=== PATIENT | female | born 1980 | race African-American/Black ===

== ENCOUNTER 2016-11-29 11:13 | Emergency (ER) | payer SELFPAY ==
[~2016-11-29] VITALS: Ht 162.6 cm; Wt 59.0 kg
[~2016-11-29 11:13] MED LIST: PREN-145 OR
[2016-11-29 11:59] VITALS: BP 140/90
[2016-11-29 12:35] LABS: Urine Bilirubin Negative (Negative); Urine Color Red (Yellow); Urine Glucose Normal (Normal); Urine Hyaline Cast FEW /lpf (0 - 2); Urine Ketone TRACE (Negative); Urine Mucus FEW (None Seen); Urine Nitrite Negative (Negative); Urine RBC 5698 /hpf (0 - 4); Urine pH 5.5 (5.0-8.0)
[2016-11-29 12:36] LABS: Urine Blood 3+ /uL (Negative)
[2016-11-29] MEDS: KETOROLAC TROMETH 60MG/2ML VIAL IM ONE (12:50)
== END 2016-11-29 14:19 | disposition home or self-care (01) ==
LOC: ER 11:17
DX: M54.9 Dorsalgia, unspecified (principal); R31.0 Gross hematuria; R10.9 Unspecified abdominal pain; I10 Essential (primary) hypertension; F17.210 Nicotine dependence, cigarettes, uncomplicated
CPT/HCPCS: 74176; 81001; 81025; 96372; 99285; J1885

== ENCOUNTER 2016-12-19 11:09 | Emergency (ER) | payer SELFPAY ==
[~2016-12-19] VITALS: Ht 162.6 cm; Wt 61.2 kg
[2016-12-19] MEDS ORDERED: cloNIDine HCL 0.1 MG TAB PO ONE (12:00)
[2016-12-19] MEDS ORDERED: KETOROLAC TROMETH 60MG/2ML VIAL IM ONE (12:00)
[2016-12-19 13:18] VITALS: BP 168/97
== END 2016-12-19 16:49 | disposition home or self-care (01) ==
LOC: ER 11:09
DX: I10 Essential (primary) hypertension (principal); G89.29 Other chronic pain; R51 Headache; F17.210 Nicotine dependence, cigarettes, uncomplicated; Z91.14 Patient's other noncompliance with medication regimen
CPT/HCPCS: 96372; 99283; J1885

== ENCOUNTER 2017-03-06 10:26 | Emergency (ER) | payer SELFPAY ==
[~2017-03-06] VITALS: Ht 162.6 cm; Wt 58.5 kg
[2017-03-06 11:04] LABS: Basophils # (auto) 0.2 uL; Basophils % (auto) 2.1 % (0.0-2.0); Eosinophils # (auto) 0.2 uL; Eosinophils % (auto) 2.1 % (0.0-7.0); Hematocrit 35.2 % (36.0-46.0); Hemoglobin 10.8 g/dL (12.2-16.2); Lymphocytes # (auto) 2.1 uL; Mean Corpuscular Hemoglobin 22.3 pg (28.0-32.0); Mean Corpuscular Hgb Conc. 30.7 g/dL (32.0-36.0); Mean Corpuscular Volume 72.6 fL (80.0-100.0); Mean Platelet Volume 9.7 fL (7.4-10.4); Monocytes # (auto) 0.6 uL; Monocytes % (auto) 7.4 % (0.0-12.0); Neutrophils # (auto) 4.6 uL; Neutrophils % (auto) 60.4 % (37.0-80.0); Nucleated Red Blood Cells % 0.1 %; Platelet Count (auto) 267 10^3/uL (140-450); White Blood Cell 7.5 10^3/uL (4.4-10.8)
[2017-03-06 11:22] LABS: Albumin 3.7 g/dL (3.4-5.0); BUN/Creatinine Ratio 12.8; Bilirubin, Total 0.3 mg/dL (0.2-1.0); Calcium 8.2 mg/dL (8.5-10.1); Total Protein 7.5 g/dL (6.4-8.2)
[2017-03-06 16:59] LABS: Urine Bilirubin Negative (Negative); Urine Blood Negative /uL (Negative); Urine Color Yellow (Yellow); Urine Glucose Normal (Normal); Urine Ketone Negative (Negative); Urine Mucus FEW (None Seen); Urine Nitrite Negative (Negative); Urine RBC 1 /hpf (0 - 4); Urine Squamous Epithelial Cell FEW /hpf (<5); Urine Urobilinogen Normal (Negative)
[2017-03-06 17:26] VITALS: BP 152/98
== END 2017-03-06 17:28 | disposition home or self-care (01) ==
LOC: ER 10:26
DX: R10.84 Generalized abdominal pain (principal); I10 Essential (primary) hypertension; F17.210 Nicotine dependence, cigarettes, uncomplicated; R11.0 Nausea
CPT/HCPCS: 36415; 80053; 81001; 81025; 85025

== ENCOUNTER 2017-05-09 19:54 | Emergency (ER) | payer SELFPAY ==
[~2017-05-09] VITALS: Ht 162.6 cm; Wt 57.2 kg
[2017-05-09] MEDS ORDERED: NIFEdipine 10 MG CAP PO ONE (20:15)
[2017-05-09 20:25] LABS: Eosinophils # (auto) 0.1 uL; Eosinophils % (auto) 1.5 % (0.0-7.0); Monocytes # (auto) 0.4 uL; Nucleated Red Blood Cells % 0.1 %; White Blood Cell 6.2 10^3/uL (4.4-10.8)
[2017-05-09 20:27] LABS: Basophils # (auto) 0.2 uL; Basophils % (auto) 2.7 % (0.0-2.0); Hematocrit 37.1 % (36.0-46.0); Hemoglobin 11.7 g/dL (12.2-16.2); Lymphocytes # (auto) 1.7 uL; Lymphocytes % (auto) 27.3 % (10.0-50.0); Mean Corpuscular Hemoglobin 22.9 pg (28.0-32.0); Mean Corpuscular Hgb Conc. 31.6 g/dL (32.0-36.0); Mean Corpuscular Volume 72.4 fL (80.0-100.0); Mean Platelet Volume 9.5 fL (6.9-10.8); Neutrophils # (auto) 3.9 uL; Neutrophils % (auto) 62.5 % (37.0-80.0); Platelet Count (auto) 293 10^3/uL (140-450); Red Cell Distribution Width 15.5 % (11.8-14.3)
[2017-05-09 20:51] LABS: Albumin 3.7 g/dL (3.4-5.0); Alkaline Phosphatase 66 U/L (45-117); Anion Gap 6 (5-15); Aspartate Aminotransferase 10 U/L (15-37); BUN/Creatinine Ratio 19.7; Bilirubin, Total 0.2 mg/dL (0.2-1.0); Blood Urea Nitrogen 15 mg/dL (7-18); Calcium 8.3 mg/dL (8.5-10.1); Carbon Dioxide 25 mmol/L (21-32); Chloride 109 mmol/L (98-107); GFR African American 110 mL/min; GFR Non-African American 91 mL/min; Glucose 91 mg/dL (74-106); Sodium 140 mmol/L (136-145); Total Protein 8.1 g/dL (6.4-8.2)
[2017-05-10] MEDS ORDERED: hydrALAZINE HCL 20 MG/ML VL IV ONE (01:15)
[2017-05-10] MEDS ORDERED: ENALAPRILAT 1.25 MG/ML-1ML VIAL IV ONE (01:15)
[2017-05-10] MEDS ORDERED: ONDANSETRON HCL 4 MG/2 ML VIAL IV ONE (04:00)
[2017-05-10] MEDS ORDERED: HYDROmorphone HCL 2 MG/ML VL IV ONE (04:00)
[2017-05-10 05:19] LABS: Urine Bilirubin Negative (Negative); Urine Blood 3+ /uL (Negative); Urine Color Yellow (Yellow); Urine Glucose Normal (Normal); Urine Ketone Negative (Negative); Urine Mucus FEW (None Seen); Urine Nitrite POSITIVE (Negative); Urine RBC 1773 /hpf (0 - 4); Urine Squamous Epithelial Cell FEW /hpf (<5); Urine Urobilinogen Normal (Negative)
[2017-05-10 05:25] VITALS: BP 169/94
== END 2017-05-10 05:44 | disposition home or self-care (01) ==
LOC: ER 19:54
DX: I10 Essential (primary) hypertension (principal); F17.210 Nicotine dependence, cigarettes, uncomplicated
CPT/HCPCS: 36415; 70450; 71010; 80053; 81001; 81025; 84484; 85025; 93005; 96374; 96375; 99285; J0360; J1170; J2405

== ENCOUNTER 2017-06-20 09:27 | Emergency (ER) | payer SELFPAY ==
[~2017-06-20] VITALS: Ht 162.6 cm; Wt 55.8 kg
[2017-06-20 09:43] VITALS: BP 183/107
[2017-06-20 10:36] LABS: Urine Bilirubin Negative (Negative); Urine Blood Negative /uL (Negative); Urine Color Yellow (Yellow); Urine Glucose Normal (Normal); Urine Ketone Negative (Negative); Urine Mucus FEW (None Seen); Urine Nitrite Negative (Negative); Urine RBC 1 /hpf (0 - 4); Urine Squamous Epithelial Cell FEW /hpf (<5); Urine pH 6.5 (5.0-8.0)
[2017-06-20 10:36] LABS: Basophils # (auto) 0.1 uL
[2017-06-20 10:38] LABS: Basophils % (auto) 1.3 % (0.0-2.0); Eosinophils # (auto) 0.2 uL; Eosinophils % (auto) 1.8 % (0.0-7.0); Hemoglobin 10.8 g/dL (12.2-16.2); Lymphocytes # (auto) 2.6 uL; Lymphocytes % (auto) 30.8 % (10.0-50.0); Mean Corpuscular Hemoglobin 22.8 pg (28.0-32.0); Mean Corpuscular Hgb Conc. 31.8 g/dL (32.0-36.0); Mean Corpuscular Volume 71.7 fL (80.0-100.0); Mean Platelet Volume 9.6 fL (6.9-10.8); Monocytes # (auto) 0.6 uL; Monocytes % (auto) 7.1 % (0.0-12.0); Nucleated Red Blood Cells % 0.1 %; Platelet Count (auto) 286 10^3/uL (140-450); Red Cell Distribution Width 15.8 % (11.8-14.3); White Blood Cell 8.4 10^3/uL (4.4-10.8)
[2017-06-20 10:58] LABS: BUN/Creatinine Ratio 12.5; Calcium 8.3 mg/dL (8.5-10.1); Potassium 3.7 mmol/L (3.5-5.1)
== END 2017-06-20 15:21 | disposition left against medical advice (07) ==
LOC: ER 09:27
DX: O26.891 Other specified pregnancy related conditions, first trimester (principal); O99.011 Anemia complicating pregnancy, first trimester; O16.1 Unspecified maternal hypertension, first trimester; O99.331 Smoking (tobacco) complicating pregnancy, first trimester; F17.210 Nicotine dependence, cigarettes, uncomplicated; Z3A.01 Less than 8 weeks gestation of pregnancy; Z53.29 Procedure and treatment not carried out because of patient's decision for other reasons
CPT/HCPCS: 36415; 80048; 81001; 84702; 85025

== ENCOUNTER 2017-07-01 18:01 | Emergency (ER) | payer SELFPAY ==
[~2017-07-01] VITALS: Ht 162.6 cm; Wt 57.2 kg
[2017-07-01 18:54] LABS: Eosinophils # (auto) 0.1 uL; Hemoglobin 11.8 g/dL (12.2-16.2); Red Blood Cells 5.11 10^6/uL (4.0-5.20); White Blood Cell 7.9 10^3/uL (4.4-10.8)
[2017-07-01 18:56] LABS: Basophils # (auto) 0.1 uL; Basophils % (auto) 0.9 % (0.0-2.0); Eosinophils % (auto) 0.8 % (0.0-7.0); Hematocrit 37.2 % (36.0-46.0); Lymphocytes # (auto) 1.7 uL; Lymphocytes % (auto) 21.1 % (10.0-50.0); Mean Corpuscular Hgb Conc. 31.7 g/dL (32.0-36.0); Mean Corpuscular Volume 72.7 fL (80.0-100.0); Monocytes # (auto) 0.6 uL; Monocytes % (auto) 7.5 % (0.0-12.0); Neutrophils # (auto) 5.5 uL; Neutrophils % (auto) 69.7 % (37.0-80.0); Nucleated Red Blood Cells % 0.1 %; Platelet Count (auto) 274 10^3/uL (140-450); Red Cell Distribution Width 15.7 % (11.8-14.3)
[2017-07-01 19:19] LABS: Urine Bacteria NONE SEEN /hpf (None Seen); Urine Blood Negative /uL (Negative); Urine Specific Gravity 1.014 (1.001-1.035); Urine WBC 2 /hpf (0 - 5)
[2017-07-01 21:07] VITALS: BP 144/89
== END 2017-07-01 21:08 | disposition home or self-care (01) ==
LOC: ER 18:01
DX: O20.0 Threatened abortion (principal); O99.331 Smoking (tobacco) complicating pregnancy, first trimester; F17.210 Nicotine dependence, cigarettes, uncomplicated; O16.1 Unspecified maternal hypertension, first trimester; Z3A.01 Less than 8 weeks gestation of pregnancy
CPT/HCPCS: 36415; 76801; 81001; 84702; 85025

== ENCOUNTER 2017-08-05 12:36 | Emergency (ER) | payer SELFPAY ==
[~2017-08-05] VITALS: Ht 154.9 cm; Wt 54.4 kg
[2017-08-05 13:41] LABS: Basophils # (auto) 0.1 uL; Basophils % (auto) 0.8 % (0.0-2.0); Eosinophils # (auto) 0.1 uL; Eosinophils % (auto) 1.5 % (0.0-7.0); Hematocrit 36.2 % (36.0-46.0); Hemoglobin 11.5 g/dL (12.2-16.2); Lymphocytes # (auto) 0.9 uL; Lymphocytes % (auto) 9.8 % (10.0-50.0); Mean Corpuscular Hemoglobin 23.3 pg (28.0-32.0); Mean Corpuscular Hgb Conc. 31.7 g/dL (32.0-36.0); Mean Corpuscular Volume 73.5 fL (80.0-100.0); Monocytes # (auto) 0.4 uL; Monocytes % (auto) 4.7 % (0.0-12.0); Neutrophils # (auto) 7.5 uL; Neutrophils % (auto) 83.2 % (37.0-80.0); Nucleated Red Blood Cells % 0.1 %; Platelet Count (auto) 248 10^3/uL (140-450); Red Blood Cells 4.92 10^6/uL (4.0-5.20)
[2017-08-05 14:03] LABS: Albumin 3.8 g/dL (3.4-5.0); Calcium 8.5 mg/dL (8.5-10.1); Potassium 3.8 mmol/L (3.5-5.1)
[2017-08-05 14:05] LABS: BUN/Creatinine Ratio 20.3
[2017-08-05 14:08] LABS: Bilirubin, Total 0.5 mg/dL (0.2-1.0); Total Protein 8.2 g/dL (6.4-8.2)
[2017-08-05 15:47] VITALS: BP 154/90
== END 2017-08-05 16:14 | disposition home or self-care (01) ==
LOC: ER 12:36
DX: O23.41 Unspecified infection of urinary tract in pregnancy, first trimester (principal); O99.331 Smoking (tobacco) complicating pregnancy, first trimester; O16.1 Unspecified maternal hypertension, first trimester; Z3A.12 12 weeks gestation of pregnancy
CPT/HCPCS: 36415; 76801; 80053; 84702; 85025

== ENCOUNTER 2017-09-20 17:05 | Emergency (ER) | payer SELFPAY ==
[~2017-09-20] VITALS: Ht 162.6 cm; Wt 59.5 kg
[2017-09-20 18:41] LABS: Basophils # (auto) 0.1 uL; Basophils % (auto) 0.7 % (0.0-2.0); Eosinophils # (auto) 0.1 uL; Hemoglobin 11.2 g/dL (12.2-16.2); Lymphocytes # (auto) 1.5 uL; Monocytes # (auto) 0.5 uL; Neutrophils # (auto) 8.5 uL
[2017-09-20 18:43] LABS: Albumin 3.2 g/dL (3.4-5.0); BUN/Creatinine Ratio 12.9; Bilirubin, Total 0.3 mg/dL (0.2-1.0); Eosinophils % (auto) 0.6 % (0.0-7.0); Hematocrit 35.6 % (36.0-46.0); Lymphocytes % (auto) 14.4 % (10.0-50.0); Mean Corpuscular Hemoglobin 23.2 pg (28.0-32.0); Mean Corpuscular Hgb Conc. 31.4 g/dL (32.0-36.0); Monocytes % (auto) 4.9 % (0.0-12.0); Neutrophils % (auto) 79.4 % (37.0-80.0); Platelet Count (auto) 220 10^3/uL (140-450); Potassium 3.9 mmol/L (3.5-5.1); Red Blood Cells 4.81 10^6/uL (4.0-5.20); Red Cell Distribution Width 15.2 % (11.8-14.3); Total Protein 7.5 g/dL (6.4-8.2); White Blood Cell 10.7 10^3/uL (4.4-10.8)
[2017-09-20] MEDS ORDERED: NIFEdipine ER 30 MG TAB PO ONE ×2 (20:08→20:15)
[2017-09-20 20:55] VITALS: BP 170/89
== END 2017-09-20 21:20 | disposition home or self-care (01) ==
LOC: ER 17:14
DX: O26.891 Other specified pregnancy related conditions, first trimester (principal); O99.331 Smoking (tobacco) complicating pregnancy, first trimester; F17.210 Nicotine dependence, cigarettes, uncomplicated; O99.321 Drug use complicating pregnancy, first trimester; F12.10 Cannabis abuse, uncomplicated; Z3A.12 12 weeks gestation of pregnancy
CPT/HCPCS: 36415; 76805; 80053; 84702; 85025

== ENCOUNTER 2017-12-10 01:05 | Observation (INO) | payer SELFPAY ==
[~2017-12-10] VITALS: Ht 165.1 cm; Wt 68.0 kg
[2017-12-10] MEDS ORDERED: MAGNESIUM SULFATE 100 ML IV ONE (23:48)
[2017-12-10] MEDS ORDERED: LABETALOL HCL 5 MG/ML 4ML SYRINGE IV ONE (23:49)
[2017-12-10] MEDS ORDERED: MAGNESIUM SULFATE 40MG/ML 1,000 ML IV ONE (23:49)
[2017-12-10] MEDS ORDERED: NIFEdipine 10 MG CAP ONE (23:58)
[2017-12-11] MEDS ORDERED: MAGNESIUM SULFATE 40MG/ML 1,000 ML IV SCH ×2 (00:03→06:15)
[2017-12-11] MEDS ORDERED: LACTATED RINGER'S 1,000 ML IV SCH (00:03)
[2017-12-11] MEDS ORDERED: BETAMETHASONE ACET (6MG/ML) 5ML VIAL ONE (00:10)
[2017-12-11] MEDS ORDERED: hydrALAZINE HCL 20 MG/ML VL IV ONE (00:15)
[2017-12-11] MEDS ORDERED: MAGNESIUM SULFATE 100 ML IV ONE (00:15)
[2017-12-11] MEDS ORDERED: LABETALOL HCL 5 MG/ML ML 20ML VIAL IV ONE ×4 (00:15→06:15)
[2017-12-11] MEDS ORDERED: NIFEdipine 10 MG CAP PO ONE ×2 (00:15→06:15)
[2017-12-11] MEDS ORDERED: BETAMETHASONE ACET (6MG/ML) 5ML VIAL IM ONE ×2 (00:15→06:15)
[2017-12-11 00:55] LABS: Hematocrit 36.2 % (36.0-46.0); Hemoglobin 11.3 g/dL (12.2-16.2); Mean Corpuscular Hemoglobin 23.2 pg (28.0-32.0); Mean Corpuscular Hgb Conc. 31.3 g/dL (32.0-36.0); Mean Corpuscular Volume 74.3 fL (80.0-100.0); Platelet Count (auto) 183 10^3/uL (140-450); Red Blood Cells 4.87 10^6/uL (4.0-5.20); Red Cell Distribution Width 14.8 % (11.8-14.3); White Blood Cell 15.1 10^3/uL (4.4-10.8)
[2017-12-11 01:02] LABS: Basophils % (manual) 0 (0.0-2.0); Blast Cells 0; Metamyelocytes % 0; Myelocytes % 0; Promyelocytes % 0; Reactive Lymphocytes 0
[2017-12-11 01:12] LABS: INR 0.95 (0.9-1.15); Partial Thromboplastin Time 32.2 sec (23.78-33.04); Prothrombin Time 10.2 sec (9.27-12.13)
[2017-12-11 01:20] LABS: BUN/Creatinine Ratio 12.5; Bilirubin, Total 0.3 mg/dL (0.2-1.0); Calcium 8.2 mg/dL (8.5-10.1); Potassium 3.7 mmol/L (3.5-5.1); Total Protein 7.3 g/dL (6.4-8.2); Uric Acid 4.7 mg/dL (2.6-6.0)
[2017-12-11 01:41] LABS: Urine Bacteria NONE SEEN /hpf (None Seen); Urine Blood Negative /uL (Negative); Urine Mucus FEW (None Seen); Urine Specific Gravity 1.026 (1.001-1.035); Urine WBC 1 /hpf (0 - 5)
[2017-12-11 01:41] LABS: Band Neutrophils % (manual) 2; Eosinophils % (manual) 2 (0-7); Lymphocytes % (manual) 15 (10.0-50.0); Monocytes % (manual) 5 (0-12)
[2017-12-11 01:54] LABS: Alcohol, Urine < 3.0 mg/dL (0-5); Amphetamine Screen, Urine NEGATIVE (NEGATIVE); Barbiturate Scree,Urine NEGATIVE (NEGATIVE); Benzodiazephine Screen, Urine NEGATIVE (NEGATIVE); Cannabinoid Screen, Urine POSITIVE (NEGATIVE); Cocaine Screen, Urine NEGATIVE (NEGATIVE); Opiate Scree,Urine NEGATIVE (NEGATIVE); Phencyclidine Screen, Urine NEGATIVE (NEGATIVE)
[2017-12-11] MEDS ORDERED: hydrALAZINE HCL 20 MG/ML VL ONE (04:01)
[2017-12-11] MEDS ORDERED: MAGNESIUM SULFATE 1GM/100ML 100 ML IV SCH (06:15)
[2017-12-12 05:06] LABS: RPR Non Reactive (Non Reactive)
[2017-12-12 07:11] LABS: Rubella Antibodies, IgG 4.99 index (Immune >0.99)
== END 2017-12-11 13:58 | disposition home or self-care (01) | DRG 782 ==
LOC: PREOBSVTOIN 01:05 → UNDOADMOB 23:11 → LDRP 23:11 → INTOOBSV 23:11
PROVIDERS: ADMIT Obstetrics & Gynecology; ATTEND Obstetrics & Gynecology
DX: O13.3 Gestational [pregnancy-induced] hypertension without significant proteinuria, third trimester (principal); Z3A.30 30 weeks gestation of pregnancy; Z87.891 Personal history of nicotine dependence
CPT/HCPCS: 36415; 59025; 76805; 80053; 80307; 81001; 81002; 84550; 85007; 85027; 85362; 85379; 85610; 85730; 86592; 86703; 86762; 86850; 86900; 86901; 87340; 96365; 96366; 96372; 96375; 96376; G0378; J0360; J0702; J3475; J3490; 96361; 96374

== ENCOUNTER 2018-06-20 13:28 | Emergency (ER) | payer OTHER ==
[~2018-06-20] VITALS: Ht 162.6 cm; Wt 59.0 kg
[2018-06-20] MEDS: cloNIDine HCL 0.1 MG TAB PO ONE (13:52)
[2018-06-20] MEDS: cloNIDine HCL 0.1 MG TAB ONE (13:52)
[2018-06-20] MEDS: KETOROLAC TROMETH 30 MG/ML 1ML VIAL IV ONE (14:26)
[2018-06-20 14:38] LABS: Eosinophils # (auto) 0.2 uL; Hemoglobin 11.4 g/dL (12.2-16.2); Lymphocytes # (auto) 1.5 uL; Monocytes # (auto) 0.7 uL; Nucleated Red Blood Cells % 0.1 %; White Blood Cell 7.9 10^3/uL (4.4-10.8)
[2018-06-20 14:45] LABS: Basophils # (auto) 0.2 uL; Basophils % (auto) 2.4 % (0.0-2.0); Eosinophils % (auto) 2.7 % (0.0-7.0); Lymphocytes % (auto) 19.2 % (10.0-50.0); Mean Corpuscular Hemoglobin 21.9 pg (28.0-32.0); Mean Corpuscular Hgb Conc. 30.7 g/dL (32.0-36.0); Mean Corpuscular Volume 71.5 fL (80.0-100.0); Neutrophils # (auto) 5.3 uL; Neutrophils % (auto) 66.7 % (37.0-80.0); Platelet Count (auto) 300 10^3/uL (140-450); Red Blood Cells 5.18 10^6/uL (4.0-5.20); Red Cell Distribution Width 15.6 % (11.8-14.3)
[2018-06-20 14:56] LABS: INR 1.07 (0.9-1.15); Partial Thromboplastin Time 35.5 sec (23.78-33.04); Prothrombin Time 11.4 sec (9.27-12.13)
[2018-06-20 15:01] LABS: Albumin 3.7 g/dL (3.4-5.0); Anion Gap 8 (5-15); Blood Urea Nitrogen 14 mg/dL (7-18); Calcium 8.3 mg/dL (8.5-10.1); Carbon Dioxide 26 mmol/L (21-32); Chloride 105 mmol/L (98-107); Glucose 74 mg/dL (74-106); Magnesium 2.2 mg/dL (1.6-2.6); Potassium 3.8 mmol/L (3.5-5.1); Sodium 139 mmol/L (136-145)
[2018-06-20 15:03] LABS: Alanine Aminotransferase 14 U/L (13-56); Aspartate Aminotransferase 9 U/L (15-37); BUN/Creatinine Ratio 14.7; GFR African American 85 mL/min; GFR Non-African American 70 mL/min
[2018-06-20 15:08] LABS: Alkaline Phosphatase 64 U/L (45-117); Bilirubin, Total 0.3 mg/dL (0.2-1.0)
[2018-06-20] MEDS: hydrALAZINE HCL 20 MG/ML VL IV ONE (15:49)
[2018-06-20 16:20] VITALS: BP 137/81
== END 2018-06-20 16:30 | disposition home or self-care (01) ==
LOC: ER 13:31
CPT/HCPCS: 36415 ×2; 80053 ×2; 83735 ×2; 84484 ×2; 85025 ×2; 85610 ×2; 85730 ×2; 93005 ×2; 94761 ×2; 96374 ×2; 96375 ×2; 99284; J0360; J1885 ×2

== ENCOUNTER 2021-02-09 08:48 | Emergency (ER) | payer SELFPAY ==
[~2021-02-09] VITALS: Ht 162.6 cm; Wt 59.0 kg
[2021-02-09 09:22] LABS: Urine Bacteria FEW /hpf (None Seen); Urine Blood Negative /uL (Negative); Urine Mucus FEW (None Seen); Urine Specific Gravity 1.029 (1.001-1.035); Urine WBC 3 /hpf (0 - 5)
[2021-02-09 09:33] LABS: Eosinophils # (auto) 0.2 10 ^3/uL (0-0.8); Hemoglobin 11.8 g/dL (12.2-16.2); Monocytes # (auto) 0.8 10 ^3/uL (0-1.3); White Blood Cell 11.9 10^3/uL (4.4-10.8)
[2021-02-09 09:35] LABS: Basophils # (auto) 0.1 10 ^3/uL (0-0.2); Basophils % (auto) 0.9 % (0.0-2.0); Eosinophils % (auto) 1.5 % (0.0-7.0); Hematocrit 37.2 % (36.0-46.0); Lymphocytes # (auto) 2.6 10 ^3/uL (0.4-5.4); Lymphocytes % (auto) 21.7 % (10.0-50.0); Mean Corpuscular Hemoglobin 22.1 pg (28.0-32.0); Mean Corpuscular Hgb Conc. 31.8 g/dL (32.0-36.0); Mean Corpuscular Volume 69.5 fL (80.0-100.0); Monocytes % (auto) 7.1 % (0.0-12.0); Neutrophils # (auto) 8.2 10 ^3/uL (1.6-8.6); Neutrophils % (auto) 68.8 % (37.0-80.0); Nucleated Red Blood Cells % 0.1 %; Red Blood Cells 5.36 10^6/uL (4.0-5.20)
[2021-02-09 09:47] LABS: BUN/Creatinine Ratio 22.4; Calcium 8.9 mg/dL (8.5-10.1); Potassium 3.7 mmol/L (3.5-5.1)
[2021-02-09] MEDS ORDERED: cefTRIAXone 1GM/50ML D5W 50 ML IV ONE (11:00)
[2021-02-09] MEDS ORDERED: SODIUM CHLORIDE 0.9% 1,000 ML IV ONE (11:00)
[2021-02-09 12:53] VITALS: BP 145/93
== END 2021-02-09 12:55 | disposition home or self-care (01) ==
LOC: ER 08:48
DX: O23.41 Unspecified infection of urinary tract in pregnancy, first trimester (principal); I10 Essential (primary) hypertension; F17.210 Nicotine dependence, cigarettes, uncomplicated; Z3A.01 Less than 8 weeks gestation of pregnancy; Z98.890 Other specified postprocedural states
CPT/HCPCS: 36415; 76801; 80048; 81001; 84702; 85025; 96365; 99284; J0696